=== PATIENT | male | born 1975 | race Caucasian/White ===

== ENCOUNTER 2018-09-16 17:58 | Emergency (ER) | payer MEDICAID, OTHER ==
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
[2018-09-16 19:26] VITALS: BP 103/65
== END 2018-09-16 19:26 | disposition home or self-care (01) ==
LOC: EDUNIT#
DX: R06.02 Shortness of breath (principal); R06.01 Orthopnea